=== PATIENT | male | born 1960 | race Caucasian/White ===

== ENCOUNTER → 2020-10-15 | Outpatient (CLI) | payer BC | LOC: GMAE 10:25 | PROVIDERS: ATTEND Family Medicine | DX: Z00.00 Encounter for general adult medical examination without abnormal findings (principal) ==

== ENCOUNTER → 2020-10-22 | Outpatient (CLI) | payer BC ==
--- NOTE | 2020-10-23 09:53 | RAD ---
Study: Frontal and Lateral Radiographs of the Chest. Indication: dyspnea Comparison: None Impression: Heart size normal. Lungs clear. No acute osseous abnormality. Electronically signed by: Omar Fry MD 10/23/2020 9:51 AM [facility]
== END ==
LOC: RAD 10:03
PROVIDERS: ATTEND Family Medicine
DX: R06.00 Dyspnea, unspecified (principal)